=== PATIENT | male | born 1955 | race Caucasian/White ===

== ENCOUNTER 2023-01-30 09:27 | Inpatient (IN) | payer MEDICARE ==
[~2023-01-30] VITALS: Ht 182.9 cm; Wt 72.8 kg
[2023-01-30] MEDS ORDERED: ketorolac trometh. 30mg/ml inj. IM ONE (09:40)
[2023-01-30 10:29] LABS: BASOPHILS % (AUTO) 0.3 % (0-1); EOSINOPHILS # (AUTO) 0.1 X10'3 (0-0.9); EOSINOPHILS % (AUTO) 1.1 % (0-6); HEMATOCRIT 29.6 % (42.0-52.0); HEMOGLOBIN 9.3 g/dl (14.0-17.9); LYMPHOCYTES # (AUTO) 0.9 X10'3 (1.1-4.8); LYMPHOCYTES % (AUTO) 11.2 % (21-51); MEAN CORPUSCULAR HEMOGLOBIN 22.2 PG (27.0-31.0); MEAN CORPUSCULAR HGB CONC 31.3 g/dL (33.0-36.5); MEAN PLATELET VOLUME 8.4 FL (7.4-10.4); MONOCYTES # (AUTO) 0.5 X10'3 (0-0.9); MONOCYTES % (AUTO) 6.1 % (2-12); NEUTROPHILS # (AUTO) 6.3 X10'3 (1.8-7.7); NEUTROPHILS % (AUTO) 81.3 % (42-75); PLATELET COUNT 292 X10'3 (140-440); RED BLOOD COUNT 4.17 X10'6 (4.70-6.10); RED CELL DISTRIBUTION WIDTH 15.9 % (11.5-14.5); WHITE BLOOD COUNT 7.8 X10'3 (4.5-11.0)
[2023-01-30 10:40] LABS: BILIRUBIN,URINE SMALL (Neg); CLARITY,URINE CLOUDY (Clear); COLOR,URINE YELLOW (Yellow); GLUCOSE, URINE NEGATIVE (Neg); KETONES,URINE TRACE mg/dl (Neg); LEUKOCYTE ESTERASE ,URINE MODERATE (Neg); NITRITES, URINE POSITIVE (Neg); OCCULT BLOOD,URINE LARGE (Neg); PH,URINE 5.5 (4.8-8.0); PROTEIN,URINE >=300 mg/dl (Neg)
[2023-01-30 10:45] LABS: ALANINE AMINOTRANSFERASE 19 U/L (12-78); ALBUMIN 2.9 G/DL (3.4-5.0); ALBUMIN/GLOBULIN RATIO 0.5 (1.1-1.5); ALKALINE PHOSPHATASE 76 IU/L (46-116); ANION GAP 9 (8-16); ASPARTATE AMINO TRANSFERASE 6 U/L (10-37); BILIRUBIN,TOTAL 0.4 MG/DL (0.1-1.0); BLOOD UREA NITROGEN 24 MG/DL (7-18); BUN/CREATININE RATIO 14.5 (10.0-20.0); CALCIUM 9.5 MG/DL (8.5-10.1); CHLORIDE 99 MMOL/L (99-107); CREATININE 1.66 MG/DL (0.60-1.10); GLUCOSE 146 MG/DL (70-104); LIPASE 41 U/L (16-77); POTASSIUM 3.5 MMOL/L (3.5-5.1); SODIUM 136 MMOL/L (135-145); TOTAL CARBON DIOXIDE 28.2 MMOL/L (24-32); eCRCL 45 ML/MIN; eGFR 42 ML/MIN
[2023-01-30 10:51] LABS: UA COLLECTION TYPE CLN CATCH MIDSTREAM
[2023-01-30 10:52] LABS: BACTERIA,URINE 2+ /HPF (Neg); MUCUS STRANDS NONE SEEN /LPF (Neg); RBC,URINE TNTC /HPF (0-2); RENAL CELLS, URINE FEW /HPF; SQUAMOUS EPITHELIAL CELL,UR FEW /LPF (FEW); WBC,URINE TNTC /HPF (0-4)
--- NOTE | 2023-01-30 14:30 | NUR ---
FIRST CONTACT WITH PT. PT FOUND IN HIGH FOWLERS POSITION WITH AT BEDSIDE. PT REPORTS ABD PAIN FOR 3 DAYS. LARGE HARD MASS PALPATED IN INGUINAL AREA ON PT. PAIN /10. PT REPORTS 50LBS WEIGHT LOSS IN THE LAST 8-9 MONTHS. STATES PT HAD FEVER LAST NIGHT, ALTHOUGH SHE WAS NOT ABLE TO MEASURE IT SINCE SHE DID NOT HAVE A THERMOMETER, STATES HE WAS SWEATING. VSS, A/OX4. AWAITING MD HOWARD.
[2023-01-30] MEDS ORDERED: HYDROmorphone inj. 0.5 MG/0.5 ML DISP.SYRIN IV ONE (14:55)
[2023-01-30] MEDS ORDERED: normal saline 1000ml 1,000 ML IV SCH (14:55)
[2023-01-30] MEDS ORDERED: potassium Cl 20 mEq SR tablet PO PRN ×2 (17:55)
[2023-01-30] MEDS ORDERED: morphine 2 MG/ML inj. syringe IV PRN (17:55)
[2023-01-30] MEDS ORDERED: potassium Cl 40MEQ/1/2NS 520ml 520 ML IV PRN (17:55)
[2023-01-30] MEDS ORDERED: magnesium 4gm in 100ml NS 100 ML IV PRN (17:55)
[2023-01-30] MEDS ORDERED: magnesium Cl slow-release 64mg tablet PO PRN (17:55)
[2023-01-30] MEDS ORDERED: magnesium 2GM in 50ml NS 50 ML IV PRN (17:55)
[2023-01-30] MEDS ORDERED: ondansetron/PF 4mg/2ml inj IV PRN (17:55)
[2023-01-30] MEDS ORDERED: acetaminophen 325mg tablet PO PRN ×2 (17:55)
[2023-01-30] MEDS ORDERED: CefTRIAXone/D5W-Rocephin 1gm 50 ML IV ONE (18:15)
--- NOTE | 2023-01-30 18:15 | NUR ---
REPORT GIVEN TO VALENTINA SAAVEDRA
[2023-01-30] MEDS: normal saline 1000ml 1,000 ML IV SCH (18:20)
[2023-01-30] MEDS: CefTRIAXone 2gm/D5W 50ml BAG 50 ML IV SCH (18:20)
[2023-01-30 23:00] VITALS: BP 149/79; PULSE 64; RESP 13; RESP 16; TEMP 97.9; O2SAT 98
[2023-01-31] MEDS ORDERED: HYDR-4069 PO (01:53)
[2023-01-31] MEDS ORDERED: ATEN-169 PO (01:53)
[2023-01-31] MEDS ORDERED: ATOR20TA PO (01:53)
[2023-01-31] MEDS ORDERED: AMLO10TA48 PO (01:53)
[2023-01-31] MEDS: normal saline 1000ml 1,000 ML IV SCH ×3 (04:14→23:55)
[2023-01-31 05:48] LABS: ALBUMIN 2.3 G/DL (3.4-5.0); ALBUMIN/GLOBULIN RATIO 0.5 (1.1-1.5); ALKALINE PHOSPHATASE 63 IU/L (46-116); ANION GAP 6 (8-16); ASPARTATE AMINO TRANSFERASE 8 U/L (10-37); BILIRUBIN,TOTAL 0.3 MG/DL (0.1-1.0); BLOOD UREA NITROGEN 23 MG/DL (7-18); BUN/CREATININE RATIO 15.2 (10.0-20.0); CALCIUM 8.8 MG/DL (8.5-10.1); CHLORIDE 104 MMOL/L (99-107); CREATININE 1.51 MG/DL (0.60-1.10); GLUCOSE 105 MG/DL (70-104); POTASSIUM 4.1 MMOL/L (3.5-5.1); SODIUM 138 MMOL/L (135-145); TOTAL CARBON DIOXIDE 27.6 MMOL/L (24-32); TOTAL PROTEIN 7.4 G/DL (6.4-8.2); eCRCL 50 ML/MIN; eGFR 46 ML/MIN
[2023-01-31 05:50] LABS: ALANINE AMINOTRANSFERASE < 6 U/L (12-78)
[2023-01-31 05:58] LABS: BASOPHILS % (AUTO) 0.4 % (0-1); EOSINOPHILS # (AUTO) 0.1 X10'3 (0-0.9); EOSINOPHILS % (AUTO) 1.2 % (0-6); HEMATOCRIT 23.4 % (42.0-52.0); HEMOGLOBIN 7.5 g/dl (14.0-17.9); LYMPHOCYTES # (AUTO) 0.8 X10'3 (1.1-4.8); LYMPHOCYTES % (AUTO) 11.3 % (21-51); MEAN CORPUSCULAR HEMOGLOBIN 22.7 PG (27.0-31.0); MEAN CORPUSCULAR HGB CONC 32.1 g/dL (33.0-36.5); MEAN CORPUSCULAR VOLUME 70.8 FL (78-98); MEAN PLATELET VOLUME 8.9 FL (7.4-10.4); MONOCYTES # (AUTO) 0.5 X10'3 (0-0.9); MONOCYTES % (AUTO) 7.7 % (2-12); NEUTROPHILS # (AUTO) 5.6 X10'3 (1.8-7.7); NEUTROPHILS % (AUTO) 79.4 % (42-75); PLATELET COUNT 183 X10'3 (140-440); RED CELL DISTRIBUTION WIDTH 15.6 % (11.5-14.5); WHITE BLOOD COUNT 7.1 X10'3 (4.5-11.0)
[2023-01-31 06:00] VITALS: BP 124/77; PULSE 75; RESP 24; TEMP 99.8; O2SAT 99
--- NOTE | 2023-01-31 06:01 | NUR ---
Problems reprioritized. Patient report given, questions answered & plan of care reviewed with Monique.
--- NOTE | 2023-01-31 06:20 | NUR ---
received report from leticia schulz Addendum: 01/31/23 at 0637 by Lindy Welch RN received report from shazia schulz
[2023-01-31] MEDS: CefTRIAXone 2gm/D5W 50ml BAG 50 ML IV SCH (07:26)
[2023-01-31] MEDS: HYDROcodone/acetaminophen 5mg/325mg tablet PO PRN ×2 (07:28→15:15)
[2023-01-31 08:00] VITALS: RESP 16; O2SAT 99
[2023-01-31 09:55] LABS: APTT 32 SECONDS (22-32); PROTHROMBIN TIME 11.1 SECONDS (9.0-12.0)
[2023-01-31 10:00] VITALS: BP 130/75; PULSE 75; RESP 14; TEMP 98; O2SAT 98
[2023-01-31 18:00] VITALS: BP 121/72; PULSE 66; RESP 14; TEMP 99.3; O2SAT 98
--- NOTE | 2023-01-31 18:22 | NUR ---
gave report to leticia perez
[2023-01-31 22:00] VITALS: BP 113/68; PULSE 71; RESP 14; TEMP 100.2; O2SAT 98
[2023-02-01] VITALS (10 sets, daily range): BP systolic 106–139; BP diastolic 61–77; PULSE 52–72; RESP 14–18; TEMP 97.4–99; O2SAT 98–99
--- NOTE | 2023-02-01 04:21 | NUR ---
PT HAS BEEN NPO SINCE 399
--- NOTE | 2023-02-01 05:57 | NUR ---
Problems reprioritized. Patient report given, questions answered & plan of care reviewed with VALENTINA ENNIS.
[2023-02-01] MEDS: HYDROcodone/acetaminophen 5mg/325mg tablet PO PRN ×2 (06:06→13:53)
[2023-02-01] MEDS: CefTRIAXone 2gm/D5W 50ml BAG 50 ML IV SCH (06:07)
[2023-02-01 06:11] LABS: BASOPHILS % (AUTO) 0.2 % (0-1); EOSINOPHILS # (AUTO) 0.1 X10'3 (0-0.9); HEMATOCRIT 22.2 % (42.0-52.0); LYMPHOCYTES % (AUTO) 12.2 % (21-51); MEAN CORPUSCULAR HEMOGLOBIN 22.5 PG (27.0-31.0); MEAN CORPUSCULAR HGB CONC 31.6 g/dL (33.0-36.5); MEAN CORPUSCULAR VOLUME 71.2 FL (78-98); MEAN PLATELET VOLUME 9.2 FL (7.4-10.4); MONOCYTES # (AUTO) 0.5 X10'3 (0-0.9); MONOCYTES % (AUTO) 6.6 % (2-12); NEUTROPHILS # (AUTO) 6.4 X10'3 (1.8-7.7); PLATELET COUNT 202 X10'3 (140-440); RED BLOOD COUNT 3.11 X10'6 (4.70-6.10); RED CELL DISTRIBUTION WIDTH 15.9 % (11.5-14.5)
[2023-02-01 06:47] LABS: ALBUMIN 2.2 G/DL (3.4-5.0); ALBUMIN/GLOBULIN RATIO 0.4 (1.1-1.5); ALKALINE PHOSPHATASE 51 IU/L (46-116); ANION GAP 9 (8-16); ASPARTATE AMINO TRANSFERASE 9 U/L (10-37); BILIRUBIN,TOTAL 0.2 MG/DL (0.1-1.0); BLOOD UREA NITROGEN 24 MG/DL (7-18); CALCIUM 8.6 MG/DL (8.5-10.1); CHLORIDE 104 MMOL/L (99-107); CREATININE 1.33 MG/DL (0.60-1.10); GLUCOSE 107 MG/DL (70-104); POTASSIUM 4.2 MMOL/L (3.5-5.1); SODIUM 138 MMOL/L (135-145); TOTAL CARBON DIOXIDE 24.6 MMOL/L (24-32); TOTAL PROTEIN 7.1 G/DL (6.4-8.2); eCRCL 56 ML/MIN; eGFR 54 ML/MIN
[2023-02-01 06:50] LABS: ALANINE AMINOTRANSFERASE < 6 U/L (12-78)
[2023-02-01] MEDS: normal saline 1000ml 1,000 ML IV SCH (09:55)
[2023-02-01] MEDS: atorvastatin 20mg tablet PO SCH (11:22)
[2023-02-01] MEDS: amLODIPine 5mg tablet PO SCH (11:23)
[2023-02-01] MEDS: atenolol 50mg tablet PO SCH (11:24)
[2023-02-01] MEDS: sodium ferric gluc complex inj 125 MG in normal saline 100ml IV soln 100 ML IV SCH (14:03)
[2023-02-01 14:27] LABS: BFAPPEAR BLOODY; BFCOLOR RED; BFSOURCE OTHER; BFVOLUME 10 ML
[2023-02-01 14:28] LABS: BF WBC COUNT 161000 /CU MM (0-1000); LYMPHOCYTES,BODY FLUID 13 %; MONOCYTES,BODY FLUID 4 %; NEUTROPHILS,BODY FLUID 83 %
[2023-02-01 16:32] LABS: HEMATOCRIT 23.7 % (42.0-52.0); HEMOGLOBIN 7.6 g/dl (14.0-17.9); MEAN CORPUSCULAR HEMOGLOBIN 23.6 PG (27.0-31.0); MEAN CORPUSCULAR HGB CONC 32.2 g/dL (33.0-36.5); MEAN CORPUSCULAR VOLUME 73.4 FL (78-98); MEAN PLATELET VOLUME 8.4 FL (7.4-10.4); PLATELET COUNT 203 X10'3 (140-440); RED BLOOD COUNT 3.23 X10'6 (4.70-6.10); RED CELL DISTRIBUTION WIDTH 16.8 % (11.5-14.5); WHITE BLOOD COUNT 8.6 X10'3 (4.5-11.0)
--- NOTE | 2023-02-01 18:32 | NUR ---
gave report to leticia zuleta
[2023-02-01] MEDS: hydrALAZINE 25 MG tablet PO SCH (19:53)
[2023-02-01 21:31] LABS: HEMATOCRIT 22.9 % (42.0-52.0); HEMOGLOBIN 7.4 g/dl (14.0-17.9); MEAN CORPUSCULAR HEMOGLOBIN 23.5 PG (27.0-31.0); MEAN CORPUSCULAR HGB CONC 32.3 g/dL (33.0-36.5); MEAN CORPUSCULAR VOLUME 72.6 FL (78-98); MEAN PLATELET VOLUME 8.3 FL (7.4-10.4); PLATELET COUNT 192 X10'3 (140-440); RED BLOOD COUNT 3.15 X10'6 (4.70-6.10); RED CELL DISTRIBUTION WIDTH 16.8 % (11.5-14.5); WHITE BLOOD COUNT 8.3 X10'3 (4.5-11.0)
[2023-02-02 06:00] VITALS: BP 112/58; PULSE 57; RESP 15; TEMP 97.7; O2SAT 98
--- NOTE | 2023-02-02 06:40 | NUR ---
Problems reprioritized. Patient report given, questions answered & plan of care reviewed with PABLO. Addendum: 02/02/23 at 0642 by Scout Pinon RN Amended: Links added.
[2023-02-02 07:22] LABS: BASOPHILS % (AUTO) 0.4 % (0-1); EOSINOPHILS # (AUTO) 0.1 X10'3 (0-0.9); EOSINOPHILS % (AUTO) 1.3 % (0-6); HEMATOCRIT 24.8 % (42.0-52.0); HEMOGLOBIN 7.7 g/dl (14.0-17.9); LYMPHOCYTES # (AUTO) 1.2 X10'3 (1.1-4.8); LYMPHOCYTES % (AUTO) 13.2 % (21-51); MEAN CORPUSCULAR HGB CONC 31.3 g/dL (33.0-36.5); MEAN CORPUSCULAR VOLUME 73.4 FL (78-98); MEAN PLATELET VOLUME 8.7 FL (7.4-10.4); MONOCYTES # (AUTO) 0.6 X10'3 (0-0.9); NEUTROPHILS # (AUTO) 7.1 X10'3 (1.8-7.7); NEUTROPHILS % (AUTO) 78.1 % (42-75); PLATELET COUNT 217 X10'3 (140-440); RED BLOOD COUNT 3.37 X10'6 (4.70-6.10); RED CELL DISTRIBUTION WIDTH 16.9 % (11.5-14.5)
[2023-02-02] MEDS: CefTRIAXone 2gm/D5W 50ml BAG 50 ML IV SCH (07:47)
[2023-02-02 08:06] LABS: ALANINE AMINOTRANSFERASE 7 U/L (12-78); ALBUMIN 2.2 G/DL (3.4-5.0); ALBUMIN/GLOBULIN RATIO 0.4 (1.1-1.5); ALKALINE PHOSPHATASE 54 IU/L (46-116); ANION GAP 7 (8-16); ASPARTATE AMINO TRANSFERASE 11 U/L (10-37); BILIRUBIN,TOTAL 0.5 MG/DL (0.1-1.0); BLOOD UREA NITROGEN 23 MG/DL (7-18); BUN/CREATININE RATIO 16.9 (10.0-20.0); CALCIUM 8.6 MG/DL (8.5-10.1); CHLORIDE 102 MMOL/L (99-107); CREATININE 1.36 MG/DL (0.60-1.10); GLUCOSE 101 MG/DL (70-104); POTASSIUM 4.2 MMOL/L (3.5-5.1); SODIUM 133 MMOL/L (135-145); TOTAL CARBON DIOXIDE 24.3 MMOL/L (24-32); TOTAL PROTEIN 7.3 G/DL (6.4-8.2); eCRCL 55 ML/MIN; eGFR 52 ML/MIN
[2023-02-02 08:14] LABS: FERRITIN 217 NG/ML (26-388)
[2023-02-02] MEDS: atorvastatin 20mg tablet PO SCH (08:34)
[2023-02-02] MEDS: atenolol 50mg tablet PO SCH (08:34)
[2023-02-02] MEDS: hydrALAZINE 25 MG tablet PO SCH ×2 (08:35→20:48)
[2023-02-02] MEDS: amLODIPine 5mg tablet PO SCH (08:35)
--- NOTE | 2023-02-02 08:35 | NUR ---
Patient stated during am med pass that he takes Hydralazine 25 mg PO BID at home, not 50mg BID. Hydralazine 25 PO was given as per pt statements, and pharmacy was notified.
[2023-02-02] MEDS: sodium ferric gluc complex inj 125 MG in normal saline 100ml IV soln 100 ML IV SCH (09:04)
[2023-02-02 10:00] VITALS: BP 103/62; PULSE 59; RESP 14; TEMP 97.5; O2SAT 98
[2023-02-02 12:31] LABS: PSA, FREE 0.13 ng/mL
[2023-02-02 18:00] VITALS: BP 117/70; PULSE 57; RESP 16; TEMP 98.9; O2SAT 99
--- NOTE | 2023-02-02 18:15 | NUR ---
Patient report given, questions answered & plan of care reviewed with Ligia Nevarez RN .
[2023-02-02 19:12] LABS: OCCULT BLOOD STOOL NEGATIVE (Neg)
[2023-02-02 20:40] VITALS: RESP 14; O2SAT 97
[2023-02-02 22:00] VITALS: BP 108/57; PULSE 63; RESP 14; TEMP 97.5; O2SAT 97
[2023-02-03 06:00] VITALS: BP 118/61; PULSE 56; RESP 13; TEMP 98.4; O2SAT 97
--- NOTE | 2023-02-03 06:29 | NUR ---
Patient in room [facility]. I have received report from chely kelly and had the opportunity to ask questions and assume patient care.
--- NOTE | 2023-02-03 06:45 | NUR ---
Problems reprioritized. Patient report given, questions answered & plan of care reviewed with VALENTINA Pires.
--- NOTE | 2023-02-03 07:03 | NUR ---
Problems reprioritized. Patient report given, questions answered & plan of care reviewed with trey mccray.
[2023-02-03 07:16] LABS: BASOPHILS % (AUTO) 0.3 % (0-1); EOSINOPHILS # (AUTO) 0.2 X10'3 (0-0.9); HEMATOCRIT 26.1 % (42.0-52.0); HEMOGLOBIN 8.3 g/dl (14.0-17.9); LYMPHOCYTES # (AUTO) 0.9 X10'3 (1.1-4.8); LYMPHOCYTES % (AUTO) 11.7 % (21-51); MEAN CORPUSCULAR HEMOGLOBIN 23.3 PG (27.0-31.0); MEAN CORPUSCULAR HGB CONC 31.8 g/dL (33.0-36.5); MEAN CORPUSCULAR VOLUME 73.3 FL (78-98); MEAN PLATELET VOLUME 8.8 FL (7.4-10.4); MONOCYTES # (AUTO) 0.5 X10'3 (0-0.9); MONOCYTES % (AUTO) 6.2 % (2-12); NEUTROPHILS # (AUTO) 6.3 X10'3 (1.8-7.7); NEUTROPHILS % (AUTO) 79.8 % (42-75); PLATELET COUNT 229 X10'3 (140-440); RED BLOOD COUNT 3.57 X10'6 (4.70-6.10); WHITE BLOOD COUNT 7.9 X10'3 (4.5-11.0)
[2023-02-03] MEDS ORDERED: pantoprazole 40mg Tablet.DR PO SCH (07:30)
[2023-02-03 07:35] LABS: ALANINE AMINOTRANSFERASE 16 U/L (12-78); ALBUMIN 2.2 G/DL (3.4-5.0); ALBUMIN/GLOBULIN RATIO 0.4 (1.1-1.5); ALKALINE PHOSPHATASE 59 IU/L (46-116); ANION GAP 6 (8-16); ASPARTATE AMINO TRANSFERASE 13 U/L (10-37); BILIRUBIN,TOTAL 0.2 MG/DL (0.1-1.0); BLOOD UREA NITROGEN 22 MG/DL (7-18); CALCIUM 8.8 MG/DL (8.5-10.1); CHLORIDE 101 MMOL/L (99-107); GLUCOSE 105 MG/DL (70-104); POTASSIUM 4.4 MMOL/L (3.5-5.1); SODIUM 133 MMOL/L (135-145); TOTAL CARBON DIOXIDE 25.9 MMOL/L (24-32); TOTAL PROTEIN 7.5 G/DL (6.4-8.2); eCRCL 68 ML/MIN; eGFR 67 ML/MIN
[2023-02-03] MEDS: atorvastatin 20mg tablet PO SCH (07:42)
[2023-02-03] MEDS: amLODIPine 5mg tablet PO SCH (07:42)
[2023-02-03] MEDS: atenolol 50mg tablet PO SCH (07:43)
[2023-02-03] MEDS: hydrALAZINE 25 MG tablet PO SCH (07:44)
[2023-02-03 08:00] VITALS: RESP 13; O2SAT 97
[2023-02-03] MEDS: CefTRIAXone 2gm/D5W 50ml BAG 50 ML IV SCH (08:11)
--- NOTE | 2023-02-03 09:47 | NUR ---
Initial: Pt admit for complicated UTI with prostatomegaly/bladder wall thickening and GRACIE. Pt with low iron studies, currently receiving IV Iron. Per H&P pt reports 50 lb wt loss over the last six months. No wt hx in EMR though pt unsure of wt loss and denied decreased appetite/PO intake per malnutrition risk screen with RN. Pt currently on a heart healthy diet and eating well, documented with average 92% PO intake since admit meeting 100% estimated nutrient needs. Pt with no documented significant decrease in muscle strength or edema. Pt currently lacks a minimum of two criteria for malnutrition though will continue to monitor s/s of malnutrition. LBM 02/02 per EMR. No nutrition intervention implemented at this time. Will continue to follow and make recommendations as appropriate. Recommendations: 1) Liberalize to regular diet given no significant cardiac PMH 2) Continue routine IV Fe d/t low iron studies 3) Routine bowel care 4) Weekly scaled weights Addendum: 02/03/23 at [address] Amended: Links added.
[2023-02-03 10:00] VITALS: BP 119/68; PULSE 65; RESP 16; TEMP 98.7; O2SAT 99
[2023-02-03] MEDS: sodium ferric gluc complex inj 125 MG in normal saline 100ml IV soln 100 ML IV SCH (10:46)
[2023-02-03] MEDS ORDERED: AMLO10TA48 PO (13:10)
[2023-02-03] MEDS ORDERED: ATOR20TA PO (13:10)
[2023-02-03] MEDS ORDERED: ATEN-169 PO (13:10)
[2023-02-03] MEDS ORDERED: HYDR-4069 PO (13:10)
[2023-02-03] MEDS ORDERED: PANT40TA54 PO (13:10)
[2023-02-03] MEDS ORDERED: IRON-21 PO (13:10)
--- NOTE | 2023-02-03 14:45 | NUR ---
Patient discharged home with personal belongings including home meds stored in pharmacy. Transported via POV. PIV discontinued with tip intact. Patient alert and appropriate at the time of discharge.
== END 2023-02-03 14:55 | disposition home or self-care (01) | DRG 604 ==
LOC: ER 09:28 → UNDOADMIN 18:00 → ED HOLD 18:00 → ORTHO 4S 22:46 → ED HOLD 22:46
PROVIDERS: ADMIT Internal Medicine; ATTEND Internal Medicine
PROC: 30233N1 Transfusion of Nonautologous Red Blood Cells into Peripheral Vein, Percutaneous Approach (ICD-10-PCS; principal; 2023-02-01)
PROC: 0K9 Muscles, Drainage (ICD-10-PCS; 2023-02-01)
DX: S30.1XXA Contusion of abdominal wall, initial encounter (principal); N17.0 Acute kidney failure with tubular necrosis; N39.0 Urinary tract infection, site not specified; C61 Malignant neoplasm of prostate; K40.90 Unilateral inguinal hernia, without obstruction or gangrene, not specified as recurrent; I10 Essential (primary) hypertension; E86.0 Dehydration; D50.9 Iron deficiency anemia, unspecified; N40.0 Benign prostatic hyperplasia without lower urinary tract symptoms; E78.5 Hyperlipidemia, unspecified; X58.XXXA Exposure to other specified factors, initial encounter; R63.4 Abnormal weight loss; Y93.89 Activity, other specified; Y92.89 Other specified places as the place of occurrence of the external cause; Y99.8 Other external cause status; Z79.899 Other long term (current) drug therapy; Z87.891 Personal history of nicotine dependence; Z68.21 Body mass index [BMI] 21.0-21.9, adult
CPT/HCPCS: 10160; 36415; 36430; 74176; 76942; 80053; 81001; 82272; 82728; 83605; 83690; 84145; 84153; 84154; 85025; 85027; 85610; 85651; 85730; 86140; 86870; 86880; 86885; 86900; 86901; 86905; 86922; 87040; 87070; 87077; 87081; 87088; 87186; 87205; 89051; 96372; 96374; 97161; 97530; 99285; G0378; J0696; J1170; J1885; J2916; J3490; J7030; J7040; P9016